=== PATIENT | male | born 1955 | race Caucasian/White ===

== ENCOUNTER 2017-06-10 08:26 | Inpatient (IN) | payer OTHER ==
[2017-06-09 14:20] VITALS: BMI 38.0
[~2017-06-10] VITALS: Ht 167.6 cm; Wt 105.2 kg
[2017-06-10] VITALS (23 sets, daily range): BP systolic 95–150; BP diastolic 52–92; PULSE 50–89; RESP 12–28; Ht 167.6 cm; Wt 105.2 kg
[~2017-06-10 08:26] MED LIST: CEFAZOLIN 2 GM/50 ML (PMX) 50 ML (FOR WT < 120 KG) IVPB ONE; TRANEXAMIC ACID 1,000 MG in NS AT CLOSURE X1 IVPB ONE; TRANEXAMIC ACID 1,000 MG in NS AT INCISION X1 IVPB ONE
[2017-06-10] MEDS ORDERED: SITA100T8 PO (09:20)
[2017-06-10] MEDS ORDERED: DAPA1TAB3 PO (09:20)
[2017-06-10] MEDS ORDERED: GABA100C14 PO (09:21)
[2017-06-10] MEDS ORDERED: MELO-216 PO (09:21)
[2017-06-10] MEDS ORDERED: PRAV40TA76 PO (09:23)
[2017-06-10] MEDS ORDERED: BENA1TAB12 PO (09:23)
--- NOTE | 2017-06-10 09:32 | HPN ---
Date/Time of Note Date/Time of Note DATE: 06/10/17 TIME: 09:32 Interval H&P Admission Note Pt. seen H&P reviewed: No system changes CHAPINCITO TUCKER PA-C Jun 10, 2017 09:32
[2017-06-10] MEDS ORDERED: BUPIVACAINE 0.5%/EPI (SDV) 30 ML INJ ONE ×2 (10:03→12:30)
[2017-06-10] MEDS ORDERED: POLYMYXIN/BACITRACIN 1L IRRIG ONE (10:04)
[2017-06-10] MEDS ORDERED: KETOROLAC 30 MG INJ ONE ×3 (10:04→15:50)
[2017-06-10] MEDS ORDERED: morphine SULFATE/PF (10 MG/10 ML) INJ ONE (10:04)
[2017-06-10] MEDS ORDERED: MIDAZOLAM 1 MG/ML 2 ML INJ ONE (10:20)
[2017-06-10] MEDS ORDERED: OXYCODONE/ACETAMINOPHEN (5/325) TAB PO PRN ×2 (10:30)
[2017-06-10] MEDS ORDERED: MIDAZOLAM 1 MG/ML 2 ML INJ IV PRN (10:30)
[2017-06-10] MEDS ORDERED: METOCLOPRAMIDE 10 MG INJ IV PRN (10:30)
[2017-06-10] MEDS ORDERED: MEPERIDINE 25 MG INJ IV PRN (10:30)
[2017-06-10] MEDS ORDERED: EPHEDrine SULFATE 50 MG/5 ML SYG IV PRN (10:30)
[2017-06-10] MEDS ORDERED: DIPHENHYDRAMINE 50 MG INJ IV PRN (10:30)
[2017-06-10] MEDS ORDERED: ONDANSETRON 4 MG INJ IV PRN (10:30)
[2017-06-10] MEDS ORDERED: hydrALAzine 20 MG INJ IV PRN (10:30)
[2017-06-10] MEDS ORDERED: HYPOGLYCEMIA PROTOCOL when Glucose is <70 mg/dL or symptomatic <90 mg/dL. XX ONE (10:30)
[2017-06-10] MEDS ORDERED: LABETALOL HCL 20MG INJ IV PRN (10:30)
[2017-06-10] MEDS ORDERED: KETOROLAC 30 MG INJ IV PRN (10:30)
[2017-06-10] MEDS ORDERED: FENTAnyl 50 MCG/ML VIAL IV PRN ×3 (10:30)
[2017-06-10] MEDS ORDERED: HYDROmorphONE (0.2 MG/ML) 10ML SYG IV PRN ×3 (10:30)
[2017-06-10] MEDS ORDERED: GLUCOSE GEL 15 GRAM TUBE PO PRN ×2 (11:00)
[2017-06-10] MEDS ORDERED: GLUCAGON 1 MG INJ IM PRN (11:00)
[2017-06-10] MEDS ORDERED: GLUCOSE GEL 15 GRAM TUBE BUCCAL PRN (11:00)
[2017-06-10] MEDS ORDERED: DEXTROSE 50% 50 ML SYRINGE IV PRN ×2 (11:00)
--- NOTE | 2017-06-10 14:34 | SIPON ---
Date/Time of Note Date/Time of Note DATE: 06/10/17 TIME: 14:32 Operative Report Preoperative Diagnosis bilateral DJD of the knees Postoperative Diagnosis same Operation/Procedure Performed Right total knee replacement, left medial unicondylar knee replacement Surgeon see signature line carpenter's assistant Dr. Lencho Matta Second assist: CHAPINCITO TUCKER PA-C Anesthesia: spinal Estimated blood loss: 200 - 250 ml's Transfusion Required none Specimen bone Grafts/Implants DePuy TKA, right 5 femur, 5 tibia, 7 poly, 35 patella CR knee DePuy Left UKA, 4 femur, 4 tibia, 8 poly Complications none HUNTER BARNES Jun 10, 2017 14:34
[2017-06-10] MEDS ORDERED: LABETALOL HCL 20MG INJ ONE (14:49)
[2017-06-10] MEDS ORDERED: NEOSTIGMINE 3 MG/3 ML SYRINGE ONE (15:21)
[2017-06-10] MEDS ORDERED: PROPOFOL 20 ML ONE (15:21)
[2017-06-10] MEDS ORDERED: LIDOCAINE 2% (SDV) 5 ML INJ ONE (15:21)
[2017-06-10] MEDS ORDERED: ROCURONIUM 50 MG INJ ONE (15:21)
[2017-06-10] MEDS ORDERED: GLYCOPYRROLATE 0.4 MG INJ ONE (15:22)
[2017-06-10] MEDS ORDERED: DEXTROSE 5%-LR 1,000 ML IV SCH (15:59)
--- NOTE | 2017-06-10 15:59 | PDOCDIS ---
Discharge Instructions DIAGNOSIS Discharge Diagnosis Status post right total knee replacement and left unicondylar medial resurfacing. CONDITION Patient Condition: Good HOME CARE INSTRUCTIONS: Diet Instructions: Regular ACTIVITY: Activity Restrictions: Slowly Increase Activity Rest between Activity Avoid heavy lifting No Sexual Activity Do not Drive Do not operate Machinery Do not operate Power Tool Avoid Heavy Housework Keep Limb Elevated (With pillows underneath the foot/ankle only so that leg remains in full extension at rest. Ice modalities.) Weight Bearing (As tolerated using front wheeled walker) Bathing Restrictions: Shower (Keep Mepilex dressing on until postoperative appointment with Dr. Perez. Keep area dry.) FOLLOW UP/APPOINTMENTS Follow-up Plan Follow-up at postoperative appointment provided to you at your preoperative examination. CHAPINCITO TUCKER PA-C Jun 10, 2017 15:59
[2017-06-10] MEDS ORDERED: DOCUSATE SODIUM 100 MG CAP PO ONE (16:00)
[2017-06-10] MEDS ORDERED: BETHANECHOL 25 MG TAB PO PRN (16:00)
[2017-06-10] MEDS ORDERED: DIPHENHYDRAMINE 50 MG INJ IM PRN (16:00)
[2017-06-10] MEDS ORDERED: oxyCODONE 5 MG TAB PO PRN ×2 (16:00)
[2017-06-10] MEDS ORDERED: BISACODYL 10 MG SUPP PR PRN (16:00)
[2017-06-10] MEDS ORDERED: COUMADIN NOTE XX SCH (16:00)
[2017-06-10] MEDS ORDERED: NA PHOSPHATE/BIPHOS 133 ML ENEMA PR PRN (16:00)
[2017-06-10] MEDS ORDERED: HYDROmorphONE 0.2 MG/ML PCA IV PRN (16:00)
[2017-06-10] MEDS ORDERED: NALOXONE (0.4 MG/ML) INJ IV PRN (16:00)
[2017-06-10] MEDS ORDERED: SOD CHLORIDE 0.9% IVPB ONE ×6 (16:00→22:00)
[2017-06-10] MEDS ORDERED: MEPERIDINE 10 MG/ML 30 ML PCA IV PRN (16:00)
[2017-06-10] MEDS ORDERED: TRANEXAMIC ACID IVPB ONE ×6 (16:00→22:00)
[2017-06-10] MEDS ORDERED: MAGNESIUM HYDROXIDE 30ML CUP PO PRN (16:00)
[2017-06-10] MEDS ORDERED: ZOLPIDEM 5 MG TAB PO PRN (16:00)
[2017-06-10] MEDS ORDERED: ASPIRIN (EC) 325 MG TAB PO ONE (16:00)
--- NOTE | 2017-06-10 16:30 | OPR ---
Date/Time of Note Date/Time of Note DATE: 06/10/17 TIME: 16:22 Operative Report Procedure Date: Jun 10, 2017 Preoperative Diagnosis Bilateral osteoarthritis of the knees Postoperative Diagnosis Same Operation/Procedure Performed Right total knee replacement and left partial knee replacement Surgeon see signature line Crushed Stone Grader Dr. Lencho Matta Second Crushed Stone Grader: CHAPINCITO TUCKER PA-C Anesthesia Type: spinal Estimated Blood Loss: 250 - 300 ml's Transfusion none Specimen Bone Grafts/Implants Left partial knee replacement, size 4 femur, size 4 tibia and 8 mm of polyethylene, Depuy knee Right total knee replacement, size 5 femur, size 5 tibia and 8 mm of polyethylene Tubes/Drains None Complications none Pt Condition Post Procedure: stable Indications Patient is a 61-year-old male with advanced osteoarthritis of both knees, right side is worse than left Procedure Description Patient was placed supine on the operating room table. All bony points were well-padded. Preoperative antibiotics were administered. Both lower extremities were prepped and draped in usual manner. The left knee was prepared for a partial knee replacement. The left knee was approached anteriorly. A sub-vastus approach was made. The medial compartment was exposed and found to be completely devoid of cartilage on the femoral side. There are osteophytes and loose bodies. Osteophytes and loose bodies were removed. The tibial preparation was first done with external alignment. The tibia was prepared for a size 4 component from the Depuy knee system. The femur was then prepared for a size 4 component with the distal cut posterior cuts and a chamfer cut. Lug holes were drilled to secure the femoral component. Trials were inserted including a 4 femur, 4 tibia and 8 mm of polyethylene. This results in a stable knee from 0-130 with good balance and tracking. Trials were then removed. The knee was injected with quarter percent Marcaine with epinephrine along with Toradol. The knee was thoroughly irrigated and dried. Final components were cemented in place including a 4 femur, 4 tibia and 8 mm of polyethylene. Excess cement was removed. The wound was closed in layers using #1 Vicryl for arthrotomy, #2-0 Vicryl for subcutaneous tissue and 3-0 Monocryl for the skin. The right knee was then exposed with an anterior incision. A medial parapatellar approach was used. The patella was displaced laterally without everting it. Medial and lateral collateral ligaments were protected. Using intramedullary alignment, the distal femoral cut was made in 5 of valgus. Osteophytes were removed. The femur was measured to be a size 5 from the [employer] knee system. The size 5 cutting block was placed on the distal femur and anterior posterior and chamfer cuts made. The PCL was preserved. Remnants of the menisci were removed. The tibia was cut using external alignment and prepared for a size 5 component and slight external rotation. The patella was cut with a patellar clamp and patellar height restored with a 35 mm patella. Trials were inserted including a 5 femur, 5 tibia, 8 mm of polyethylene and 35 patella. This resulted in a stable knee from 0-120 with good balance and tracking. The trials were then removed. Hemostasis was confirmed. The knee was thoroughly irrigated and dried. Final components were then cemented in place including a 5 femur, 5 tibia and 35 patella. A 8 mm of polyethylene were inserted to complete the knee replacement. The knee was stable throughout its range of motion. The knee was thoroughly irrigated and injected with quarter percent Marcaine with epinephrine along with Toradol. The knee was closed in layers using #1 Vicryl for arthrotomy, 2-0 Vicryl for subcutaneous tissue and 3- 0 Monocryl for the skin. Patient was transferred to the recovery room in stable condition. HUNTER BARNES Jun 10, 2017 16:30
--- NOTE | 2017-06-10 16:45 | RADRPT ---
PROCEDURE: XR Knee. CLINICAL INDICATION: Postoperative evaluation TECHNIQUE: AP supine and cross-table lateral views of the left knee were obtained. COMPARISON: None available. FINDINGS: Mineralization is within normal limits. Metallic medial compartment of prosthetic components are pr esent involving the medial femoral condyle and medial tibial plateau. Alignment of the joint spaces is normal. Postoperative gas and soft tissue swelling is seen in the anterior compartment includin g the suprapatellar bursa with mild diffuse soft tissue swelling. RPTAT:HJJR IMPRESSION: Findings of recent postoperative hemiarthroplasty medial compartment changes of the left knee, the p rosthetic components in good radiographic alignment. Physician Clarisse Date Time Electronically viewed and signed by Physician Clarisse on 06/10/2017 16:44 JR/
--- NOTE | 2017-06-10 16:46 | RADRPT ---
PROCEDURE: Right knee x-ray CLINICAL INDICATION: Postoperative evaluation TECHNIQUE: Supine AP and cross-table lateral views of the right knee were obtained. COMPARISON: None available FINDINGS: The patient is status post total knee replacement . There are postsurgical changes in the subcutane ous soft tissues. The metallic distal femoral and proximal tibial prosthetic components are in good radiographic alignment. Postoperative changes of the posterior patellar margin are noted. Gas in th e anterior soft tissues and suprapatellar bursa is present consistent with recent surgery. There is normal mineralization. No acute fracture or dislocation is seen. RPTAT:HJJR IMPRESSION: Postsurgical changes of the right knee status post knee arthroplasty, the metallic hardware componen ts in good radiographic alignment. Physician Clarisse Date Time Electronically viewed and signed by Physician Clarisse on 06/10/2017 16:46 /
[2017-06-10] MEDS: ACETAMINOPHEN 1000MG/100ML IV 100 ML IVPB SCH (16:47)
[2017-06-10] MEDS: CEFAZOLIN 1 GM/50 ML (PMX) 50 ML IVPB SCH ×2 (16:47→23:20)
[2017-06-10] MEDS: ONDANSETRON 4 MG INJ IV SCH ×2 (17:51→21:16)
--- NOTE | 2017-06-10 19:16 | CONS ---
Date/Time of Note Date/Time of Note DATE: 06/10/17 TIME: 19:09 Assessment/Plan Assessment/Plan Chief Complaint/Hosp Course 1. Bilateral arthritis in the knees status post right total knee replacement and left partial knee replacement Pain control PT 2. Hypertension Resume home meds 3. Diabetes Resume home p.o. meds Check an A1c 4. Dyslipidemia Resume home statin Problems: Consultation Date/Type/Reason Admit Date/Time Jun 10, 2017 at 08:26 Hx of Present Illness Patient is a 61-year-old male with history of non-insulin requiring diabetes, dyslipidemia, hypertension, prostate cancer status post resection and arthritis , patient is status post right total knee replacement and left partial knee replacement today. Patient's pain is currently controlled and he states that his diabetes and hypertension are well managed. Patient has no acute complaints. Constitutional: improved, no complaints Eyes: no complaints ENT: no complaints Respiratory: no complaints Cardiovascular: no complaints Gastrointestinal: no complaints Genitourinary: no complaints Musculoskeletal: no complaints Skin: no complaints Neurologic: no complaints Endocrine: no complaints Lymphatic: no complaints Psychological: nl mood/affect, no complaints Immunologic: no complaints Past Medical History Prostate cancer Medical History: diabetes, high cholesterol, hypertension Past Surgical History History of prostate resection Right total knee replacement and left partial knee replacement postop day 0 Family History Significant Family History: no pertinent family hx Social History Alcohol Use: none Smoking Status: Former smoker Drug Use: none Exam/Review of Systems Vital Signs Vitals Vital Signs Date Time Temp Pulse Resp B/P Pulse Ox O2 Delivery O2 Flow Rate FiO2 06/10/17 17:35 Nasal Cannula 2.0 06/10/17 17:06 52 14 120/70 97 06/10/17 16:05 98.5 Exam Constitutional: alert, oriented Head: normocephalic Respiratory: clear to auscultation Cardiovascular: regular rate and rhythm Gastrointestinal: soft, No distended Musculoskeletal: nl extremities to inspection Results Results 24 hrs Laboratory Tests Test 06/10/17 09:04 06/10/17 17:50 Bedside Glucose 99 129 Medications Medications Current Medications Miscellaneous Information 1 ea NOTE XX ; Start 06/10/17 at 11:00 Glucose (Glutose) 15 gm Q15M PRN PO DECREASED GLUCOSE; Start 06/10/17 at 11:00 Glucose (Glutose) 22.5 gm Q15M PRN PO DECREASED GLUCOSE; Start 06/10/17 at 11: 00 Dextrose (D50w Syringe) 25 ml Q15M PRN IV DECREASED GLUCOSE; Start 06/10/17 at 11:00 Dextrose (D50w Syringe) 50 ml Q15M PRN IV DECREASED GLUCOSE; Start 06/10/17 at 11:00 Glucagon (Glucagen) 1 mg Q15M PRN IM DECREASED GLUCOSE; Start 06/10/17 at 11:00 Glucose (Glutose) 15 gm Q15M PRN BUCCAL DECREASED GLUCOSE; Start 06/10/17 at 11 :00 Hydromorphone HCl (Dilaudid HOSPITAL INTERN) Q4PCA PRN IV SEVERE PAIN 8-10; Start at 16:00; Stop 06/11/17 at 15:59 Meperidine HCl (Demerol [facility]OSP[facility] INTERN) Q4PCA PRN IV SEVERE PAIN 8-10; Start 06/10/17 at 16:00; Stop 06/11/17 at 15:59 Oxycodone HCl (Roxicodone) 20 mg Q3H PRN PO PAIN LEVEL 8-10; Start 06/10/17 at 16:00 Oxycodone HCl (Roxicodone) 10 mg Q3H PRN PO PAIN LEVEL 4-7; Start 06/10/17 at 16:00 Oxycodone HCl 5 mg 5 mg Q3H PRN PO PAIN LEVEL 1-3; Start 06/10/17 at 16:00 Acetaminophen (Ofirmev 1000mg/ 100ml Iv) 100 ml @ 400 mls/hr Q8H IVPB Last administered on 06/10/17 16:47; Admin Dose 400 MLS/HR; Start 06/10/17 at 16:00 ; Stop 06/12/17 at 08:14 Zolpidem Tartrate (Ambien) 5 mg HS PRN PO INSOMNIA; Start 06/10/17 at 16:00 Ondansetron HCl 4 mg 4 mg Q6H IV Last administered on 06/10/17 17:51; Admin Dose 4 MG; Start 06/10/17 at 16:00; Stop 06/11/17 at 10:01 Cefazolin Sodium (Ancef 1 Gm/50 ml (Pmx)) 50 ml @ 100 mls/hr Q8H IVPB Last administered on 06/10/17 16:47; Admin Dose 100 MLS/HR; Start 06/10/17 at 16:00 ; Stop 06/11/17 at 08:29 Miscellaneous Information (Note) NOTE XX ; Start 06/10/17 at 16:00 Aspirin (Ecotrin) 325 mg BID PO ; Start 06/11/17 at 09:00 Celecoxib (Celebrex) 200 mg BID PO ; Start 06/11/17 at 09:00 Dexamethasone (Decadron) 4 mg DAILY@07 IV ; Start 06/11/17 at 07:00; Stop 06/14 at 06:59 Pantoprazole (Protonix Tab) 40 mg DAILY@06 PO ; Start 06/12/17 at 06:00 Docusate Sodium/ Ferrous Fumarate (Marlo-Sequels) 1 tab BID PO ; Start 06/11/17 at 09:00 Docusate Sodium (Colace) 200 mg BID PO ; Start 06/11/17 at 09:00; Stop at 08:59 Simethicone (Mylicon) 80 mg TID PRN PO DISTENSION/GAS/BLOATING; Start 06/10/17 at 16:00 Senna/Docusate Sodium (Senokot-S) 2 tab BID PRN PO CONSTIPATION; Start at 16:00 Magnesium Hydroxide (Milk Of Mag) 30 ml HS PRN PO CONSTIPATION; Start 06/10/17 at 16:00 Bisacodyl (Dulcolax Supp) 10 mg DAILY PRN [place] CONSTIPATION; Start 06/10/17 at 16 :00 Sodium Biphosphate/ Sodium Phosphate (Fleet Enema) 133 ml DAILY PRN [place] CONSTIPATION; Start 06/10/17 at 16:00 Diphenhydramine HCl (Benadryl) 25 mg Q4H PRN IM ITCHING OR RASH; Start at 16:00 Ketorolac Tromethamine (Toradol) 15 mg DAILY@06 PRN IV PAIN; Start 06/11/17 at 06:00; Stop 06/15/17 at 05:59 Bupivacaine HCl/ Epinephrine Bitart (Marcaine 0.25%/ Epi (Sdv) 30 ml) 20 ml DAILY@06 PRN INJ ADMINSTER BY SURGEON ONLY; Start 06/11/17 at 06:00; Stop 07/20 at 05:59 Naloxone HCl (Narcan) 0.2 mg Q2M PRN IV DECREASED REPIRATORY RATE; Start at 16:00 Gabapentin 100 mg 100 mg BID PO ; Start 06/10/17 at 21:00; Stop 06/13/17 at 20: 59 Lactated Ringer's (Lr) 1,000 ml @ 80 mls/hr [id number] IV ; Start 06/10/17 at 20: 00 RACHEL DURON Jun 10, 2017 19:16
[2017-06-10] MEDS ORDERED: GABAPENTIN 100 MG CAP PO SCH (21:00)
[2017-06-10] MEDS: INSULIN ASPART [NOVOLOG] 3 ML PEN SC SCH (21:00)
[2017-06-10] MEDS: GABAPENTIN 100 MG CAP PO SCH (21:15)
[2017-06-10] MEDS: ATORVASTATIN 10 MG TAB PO SCH (21:15)
[2017-06-10] MEDS: LACTATED RINGER'S 1,000 ML IV SCH (21:17)
[2017-06-10] MEDS: oxyCODONE 5 MG TAB PO PRN (21:22)
[2017-06-11] VITALS: BP 90/51; RESP 51
[2017-06-11 00:10] VITALS: BP 114/60; RESP 20
[2017-06-11] MEDS: ACCU-CHEK XX SCH (02:00)
[2017-06-11] MEDS ORDERED: ACCU-CHEK XX SCH (02:00)
[2017-06-11] MEDS: ONDANSETRON 4 MG INJ IV SCH ×2 (04:36→10:00)
[2017-06-11] MEDS ORDERED: BUPIVACAINE 0.25%/EPI (SDV) 30 ML INJ INJ PRN (06:00)
[2017-06-11] MEDS ORDERED: KETOROLAC 15 MG INJ IV PRN (06:00)
[2017-06-11] MEDS: DEXAMETHASONE 4 MG/ML 1 ML INJ IV SCH (06:17)
[2017-06-11 07:00] VITALS: BP 118/63; RESP 20
[2017-06-11 08:40] LABS: BASOPHILS % 0.1 % (0.0-2.0); EOSINOPHILS % 0.2 % (0.0-7.0); HEMATOCRIT 37.3 % (42.0-52.0); HEMOGLOBIN 11.8 g/dl (14.0-18.0); LYMPHOCYTES # 0.7 10^3/ul (0.8-2.9); LYMPHOCYTES % 7.6 % (15.0-51.0); MEAN CORPUSCULAR HEMOGLOBIN 29.4 pg (29.0-33.0); MEAN CORPUSCULAR HGB CONC 31.6 g/dl (32.0-37.0); MEAN CORPUSCULAR VOLUME 92.8 fl (82.0-101.0); MEAN PLATELET VOLUME 10.2 fl (7.4-10.4); MONOCYTE # 0.6 10^3/ul (0.3-0.9); MONOCYTES % 7.1 % (0.0-11.0); NEUTROPHIL # 7.3 10^3/ul (1.6-7.5); NEUTROPHILS % 84.5 % (39.0-77.0); PLATELET COUNT 152 10^3/UL (140-415); RED BLOOD COUNT 4.02 10^6/ul (4.70-6.10); WHITE BLOOD COUNT 8.6 10^3/ul (4.8-10.8)
[2017-06-11] MEDS: INSULIN ASPART [NOVOLOG] 3 ML PEN SC SCH ×4 (08:40→21:00)
[2017-06-11 09:03] LABS: CALCIUM 8.4 mg/dl (8.4-10.2); CREATININE 0.78 mg/dl (0.61-1.24); MAGNESIUM 1.9 mg/dl (1.7-2.5); POTASSIUM 4.1 mmol/L (3.5-5.1)
[2017-06-11] MEDS: CEFAZOLIN 1 GM/50 ML (PMX) 50 ML IVPB SCH (09:37)
[2017-06-11] MEDS: ACETAMINOPHEN 1000MG/100ML IV 100 ML IVPB SCH ×3 (09:37→15:54)
[2017-06-11] MEDS: CELECOXIB 200 MG CAP PO SCH ×2 (09:38→20:46)
[2017-06-11] MEDS: LINAGLIPTIN 5 MG TABLET PO SCH (09:38)
[2017-06-11] MEDS: ASPIRIN (EC) 325 MG TAB PO SCH ×2 (09:38→20:46)
[2017-06-11] MEDS: LACTATED RINGER'S 1,000 ML IV SCH (09:38)
[2017-06-11] MEDS: GABAPENTIN 100 MG CAP PO SCH ×3 (09:38→20:46)
[2017-06-11] MEDS: DOCUSATE SODIUM 100 MG CAP PO SCH ×2 (09:39→20:47)
[2017-06-11] MEDS: FERROUS FUMARATE (SR) TAB PO SCH ×2 (09:39→20:46)
[2017-06-11] MEDS: oxyCODONE 5 MG TAB PO PRN ×3 (10:35→20:58)
--- NOTE | 2017-06-11 11:21 | PN ---
Date/Time of Note Date/Time of Note DATE: 06/11/17 TIME: 11:18 Assessment/Plan VTE Prophylaxis VTE Prophylaxis Intervention: ambulation, SCD's, other (Aspirin 325 mg) Lines/Catheters IV Catheter Type (from Nrsg): Peripheral IV Huertas in Place (from Nrsg): No Assessment/Plan Assessment/Plan -Pain Meds as needed -Dressing is clean and intact. -OOB with PT. patient was advised to keep legs at full extension while at rest. Patient adjusted his hospital bed which left his legs in flexion and he is having stiffness especially with extension today. Discussed with nurse to apply 3-4 pillows directly under the foot bilaterally that leg remains in full extension at rest. -ASA/SCDs for DVT Prophylaxis -Continue monitoring with Internal Medicine -Patient Stable. Plan is to discharge home tomorrow depending on progress with physical therapy. Subjective 24 Hr Interval Summary 61-year-old male postop day 1 status post right total knee arthroplasty and left unit condylar resurfacing to the medial compartment. Patient denies any acute events overnight. Pain is well controlled. Patient has yet to initiate physical therapy. Denies any chest pain/tightness, shortness of breath or calf pain. Constitutional: no complaints Pain Control: well controlled Exam/Review of Systems Vital Signs Vitals Vital Signs Date Time Temp Pulse Resp B/P Pulse Ox O2 Delivery O2 Flow Rate FiO2 06/11/17 07:40 Nasal Cannula 2.0 06/11/17 07:00 97.9 71 20 118/63 95 Intake and Output 06/10/17 06/10/17 06/11/17 15:00 23:00 07:00 Intake Total 2491.0 ml 1210 ml Output Total 600 ml 1200 ml Balance 1891.0 ml 10 ml Exam Free Text/Dictation -No complications with dressing intact. -5/5 Tibialis Anterior, EHL Gastrocnemius/Soleus and Peroneals bilaterally. -About 10 lag from full extension bilaterally. Patient is able to flex the right knee up to 60 and flexion of the left knee up to 80 actively. -Normal Sensation -Palpable DP/PT, Capillary Refill <2 secs -No Distal Edema -Negative Angela Sign/No calf pain -Toes Freely Movable Constitutional: alert, oriented, well developed Results Result Diagram: 06/11/1781506/11/17815 CHAPINCITO TUCKER PA-C Jun 11, 2017 11:21
[2017-06-11 14:00] VITALS: BP 110/72; RESP 18
[2017-06-11 14:02] LABS: ADD UMIC YES; UR ASCORBIC ACID NEGATIVE (NEGATIVE); UR BILIRUBIN (Dip) NEGATIVE (NEGATIVE); UR BLOOD (Dip) 2+ mg/dL (NEGATIVE); UR CLARITY CLEAR (CLEAR); UR COLOR STRAW (YELLOW); UR GLUCOSE (Dip) 3+ mg/dL (NEGATIVE); UR KETONES (Dip) NEGATIVE (NEGATIVE); UR LEUKOCYTE ESTERASE (Dip) NEGATIVE Leu/ul (NEGATIVE); UR NITRITE (Dip) NEGATIVE (NEGATIVE); UR RBC 2 /HPF (0-5); UR SPECIFIC GRAVITY (Dip) 1.014 (1.003-1.030); UR TOTAL PROTEIN (Dip) NEGATIVE (NEGATIVE); UR UROBILINOGEN (Dip) NEGATIVE (NEGATIVE)
--- NOTE | 2017-06-11 17:06 | PN ---
Date/Time of Note Date/Time of Note DATE: 06/11/17 TIME: 17:05 Assessment/Plan VTE Prophylaxis VTE Prophylaxis Intervention: other Lines/Catheters IV Catheter Type (from Nrs): Peripheral IV Urinary Cath still in place: No Assessment/Plan Chief Complaint/Hosp Course 1. Bilateral arthritis in the knees status post right total knee replacement and left partial knee replacement Pain control PT 2. Hypertension Hold home meds secondary to hypotension 3. Diabetes Continue home p.o. meds A1c at 6.2 4. Dyslipidemia Resume home statin Problems: Subjective 24 Hr Interval Summary Musculoskeletal: bone/joint pain Exam/Review of Systems Vital Signs Vitals Vital Signs Date Time Temp Pulse Resp B/P Pulse Ox O2 Delivery O2 Flow Rate FiO2 06/11/17 14:00 98.1 70 18 110/72 98 06/11/17 07:40 Nasal Cannula 2.0 Intake and Output 06/10/17 06/10/17 06/11/17 15:00 23:00 07:00 Intake Total 2491.0 ml 1210 ml Output Total 600 ml 1200 ml Balance 1891.0 ml 10 ml Exam Constitutional: alert, oriented Respiratory: clear to auscultation Cardiovascular: regular rate and rhythm Gastrointestinal: soft, No distended Musculoskeletal: nl extremities to inspection Results Result Diagram: 06/11/17 0816 06/11/17 0816 Results 24 hrs Laboratory Tests Test 06/10/17 17:50 06/10/17 21:13 06/11/17 08:16 06/11/17 08:50 Bedside Glucose 129 152 125 White Blood Count 8.6 Red Blood Count 4.02 L Hemoglobin 11.8 L Hematocrit 37.3 L Mean Corpuscular Volume 92.8 Mean Corpuscular Hemoglobin 29.4 Mean Corpuscular Hemoglobin Concent 31.6 L Red Cell Distribution Width 13.0 Platelet Count 152 Mean Platelet Volume 10.2 Neutrophils % 84.5 H Lymphocytes % 7.6 L Monocytes % 7.1 Eosinophils % 0.2 Basophils % 0.1 Nucleated Red Blood Cells % 0.0 Neutrophils # 7.3 Lymphocytes # 0.7 L Monocytes # 0.6 Eosinophils # 0.0 Basophils # 0.0 Nucleated Red Blood Cells # 0.0 Sodium Level 141 Potassium Level 4.1 Chloride Level 105 Carbon Dioxide Level 30 Anion Gap 10 Blood Urea Nitrogen 17 Creatinine 0.78 Glucose Level 127 Hemoglobin A1c 6.2 H Calcium Level 8.4 Magnesium Level 1.9 Test 06/11/17 11:55 06/11/17 13:00 Urine Color STRAW Urine Clarity CLEAR Urine pH 6.0 Urine Specific [place] 1.014 Urine Ketones NEGATIVE Urine Nitrite NEGATIVE Urine Bilirubin NEGATIVE Urine Urobilinogen NEGATIVE Urine Leukocyte Esterase NEGATIVE Urine Microscopic RBC 2 Urine Microscopic WBC 3 Urine Hemoglobin 2+ H Urine Glucose 3+ H Urine Total Protein NEGATIVE Bedside Glucose 143 Medications Medications Current Medications Miscellaneous Information 1 ea NOTE XX ; Start 06/10/17 at 11:00 Glucose (Glutose) 15 gm Q15M PRN PO DECREASED GLUCOSE; Start 06/10/17 at 11:00 Glucose (Glutose) 22.5 gm Q15M PRN PO DECREASED GLUCOSE; Start 06/10/17 at 11: 00 Dextrose (D50w Syringe) 25 ml Q15M PRN IV DECREASED GLUCOSE; Start 06/10/17 at 11:00 Dextrose (D50w Syringe) 50 ml Q15M PRN IV DECREASED GLUCOSE; Start 06/10/17 at 11:00 Glucagon (Glucagen) 1 mg Q15M PRN IM DECREASED GLUCOSE; Start 06/10/17 at 11:00 Glucose (Glutose) 15 gm Q15M PRN BUCCAL DECREASED GLUCOSE; Start 06/10/17 at 11 :00 Oxycodone HCl (Roxicodone) 20 mg Q3H PRN PO PAIN LEVEL 8-10; Start 06/10/17 at 16:00 Oxycodone HCl (Roxicodone) 10 mg Q3H PRN PO PAIN LEVEL 4-7 Last administered on 06/11/17 11:49; Admin Dose 10 MG; Start 06/10/17 at 16:00 Oxycodone HCl 5 mg 5 mg Q3H PRN PO PAIN LEVEL 1-3; Start 06/10/17 at 16:00 Acetaminophen (Ofirmev 1000mg/ 100ml Iv) 100 ml @ 400 mls/hr Q8H IVPB Last administered on 06/11/17 15:54; Admin Dose 400 MLS/HR; Start 06/10/17 at 16:00 ; Stop 06/12/17 at 08:14 Zolpidem Tartrate (Ambien) 5 mg HS PRN PO INSOMNIA; Start 06/10/17 at 16:00 Miscellaneous Information (Note) NOTE XX ; Start 06/10/17 at 16:00 Aspirin (Ecotrin) 325 mg BID PO Last administered on 06/11/17 09:38; Admin Dose 325 MG; Start 06/11/17 at 09:00 Celecoxib (Celebrex) 200 mg BID PO Last administered on 06/11/17 09:38; Admin Dose 200 MG; Start 06/11/17 at 09:00 Dexamethasone (Decadron) 4 mg DAILY@07 IV Last administered on 06/11/17 06:17 ; Admin Dose 4 MG; Start 06/11/17 at 07:00; Stop 06/14/17 at 06:59 Pantoprazole (Protonix Tab) 40 mg DAILY@06 PO ; Start 06/12/17 at 06:00 Docusate Sodium/ Ferrous Fumarate (Marlo-Sequels) 1 tab BID PO Last administered on 06/11/17 09:39; Admin Dose 1 TAB; Start 06/11/17 at 09:00 Docusate Sodium (Colace) 200 mg BID PO Last administered on 06/11/17 09:39; Admin Dose 200 MG; Start 06/11/17 at 09:00; Stop 06/14/17 at 08:59 Simethicone (Mylicon) 80 mg TID PRN PO DISTENSION/GAS/BLOATING; Start 06/10/17 at 16:00 Senna/Docusate Sodium (Senokot-S) 2 tab BID PRN PO CONSTIPATION; Start at 16:00 Magnesium Hydroxide (Milk Of Mag) 30 ml HS PRN PO CONSTIPATION; Start 06/10/17 at 16:00 Bisacodyl (Dulcolax Supp) 10 mg DAILY PRN [place] CONSTIPATION; Start 06/10/17 at 16 :00 Sodium Biphosphate/ Sodium Phosphate (Fleet Enema) 133 ml DAILY PRN [place] CONSTIPATION; Start 06/10/17 at 16:00 Diphenhydramine HCl (Benadryl) 25 mg Q4H PRN IM ITCHING OR RASH; Start at 16:00 Ketorolac Tromethamine (Toradol) 15 mg DAILY@06 PRN IV PAIN; Start 06/11/17 at 06:00; Stop 06/15/17 at 05:59 Bupivacaine HCl/ Epinephrine Bitart (Marcaine 0.25%/ Epi (Sdv) 30 ml) 20 ml DAILY@06 PRN INJ ADMINSTER BY SURGEON ONLY; Start 06/11/17 at 06:00; Stop 07/20 at 05:59 Naloxone HCl (Narcan) 0.2 mg Q2M PRN IV DECREASED REPIRATORY RATE; Start at 16:00 Gabapentin (Neurontin) 100 mg TID PO Last administered on 06/11/17 13:04; Admin Dose 100 MG; Start 06/10/17 at 21:00 Atorvastatin Calcium (Lipitor) 10 mg DAILY@21 PO Last administered on 21:15; Admin Dose 10 MG; Start 06/10/17 at 21:00 Linagliptin (Tradjenta) 5 mg DAILY PO Last administered on 06/11/17 09:38; Admin Dose 5 MG; Start 06/11/17 at 09:00 Diagnostic Test (Pha) (Accu-Chek) 1 ea 02 XX ; Start 06/11/17 at 02:00 RAHCEL DURON Jun 11, 2017 17:06
[2017-06-11 20:02] VITALS: BP 128/75; RESP 20
[2017-06-11] MEDS: ATORVASTATIN 10 MG TAB PO SCH (20:46)
[2017-06-12] MEDS: ACETAMINOPHEN 1000MG/100ML IV 100 ML IVPB SCH ×2 (00:42→08:00)
[2017-06-12] MEDS: ACCU-CHEK XX SCH (02:00)
[2017-06-12 02:55] VITALS: BP 100/63; RESP 18
[2017-06-12 05:10] LABS: BASOPHILS % 0.1 % (0.0-2.0); EOSINOPHILS # 0.1 10^3/ul (0.0-0.5); EOSINOPHILS % 0.8 % (0.0-7.0); HEMATOCRIT 33.2 % (42.0-52.0); HEMOGLOBIN 10.7 g/dl (14.0-18.0); LYMPHOCYTES # 1.4 10^3/ul (0.8-2.9); LYMPHOCYTES % 15.9 % (15.0-51.0); MEAN CORPUSCULAR HEMOGLOBIN 29.6 pg (29.0-33.0); MEAN CORPUSCULAR HGB CONC 32.2 g/dl (32.0-37.0); MEAN CORPUSCULAR VOLUME 91.7 fl (82.0-101.0); MEAN PLATELET VOLUME 10.3 fl (7.4-10.4); MONOCYTE # 0.9 10^3/ul (0.3-0.9); MONOCYTES % 10.4 % (0.0-11.0); NEUTROPHIL # 6.2 10^3/ul (1.6-7.5); NEUTROPHILS % 72.4 % (39.0-77.0); PLATELET COUNT 150 10^3/UL (140-415); RED BLOOD COUNT 3.62 10^6/ul (4.70-6.10); RED CELL DISTRIBUTION WIDTH 12.7 % (11.5-14.5); WHITE BLOOD COUNT 8.6 10^3/ul (4.8-10.8)
[2017-06-12] MEDS: DEXAMETHASONE 4 MG/ML 1 ML INJ IV SCH (06:10)
[2017-06-12] MEDS: PANTOPRAZOLE (EC) 40 MG TAB PO SCH (06:10)
[2017-06-12 08:00] VITALS: BP 142/85; RESP 18
--- NOTE | 2017-06-12 08:12 | PN ---
Date/Time of Note Date/Time of Note DATE: 06/12/17 TIME: 08:09 Assessment/Plan VTE Prophylaxis VTE Prophylaxis Intervention: ambulation, SCD's, other (Aspirin 325 mg) Lines/Catheters IV Catheter Type (from Nrsg): Peripheral IV Huertas in Place (from Nrsg): No Assessment/Plan Assessment/Plan -Pain Meds as needed -ASA for DVT Prophylaxis x 4 weeks outpatient discussed. -Continue monitoring as outpatient on discharge -Follow-up at scheduled postop outpatient appointment or sooner if there is any issue. -Patient Stable -Discharge to Home with home health -Lengthy discussion had with patient today in regards to keeping legs in full extension or as much extension as possible while resting. Patient was strongly advised when he returns home, to place pillows under the feet. Discussed range of motion in regards to active flexion and extension every 2-3 hours while at home. Continue with physical therapy as well. Patient will follow-up in office in 10-14 days. Subjective 24 Hr Interval Summary 61-year-old male postop day 2 status post right total knee arthroplasty and left medial unicondylar resurfacing. Patient states that he is doing much better today in regards to functionality to the bilateral knee. Initiated physical therapy yesterday and was walking up and down the hallways. Patient does have aches especially with weightbearing and range of motion. Denies any calf pain, chest pain/tightness or shortness of breath. No acute events overnight. Plan is to discharge home today. Pain Control: well controlled Exam/Review of Systems Vital Signs Vitals Vital Signs Date Time Temp Pulse Resp B/P Pulse Ox O2 Delivery O2 Flow Rate FiO2 06/12/17 02:55 98.0 77 18 100/63 96 06/11/17 07:40 Nasal Cannula 2.0 Intake and Output 06/11/17 06/11/17 06/12/17 15:00 23:00 07:00 Intake Total 560 ml 900 ml 550 ml Output Total 650 ml 700 ml Balance 560 ml 250 ml -150 ml Exam Free Text/Dictation -No complications with dressing intact to the bilateral knee. -5/5 Tibialis Anterior, EHL Gastrocnemius/Soleus and Peroneals bilaterally -Stiffness to the bilateral knee with knees having about 10-15 extension lag. -Normal Sensation -Palpable DP/PT, Capillary Refill <2 secs -No Distal Edema -Negative Angela Sign/No calf pain -Toes Freely Movable Constitutional: alert, oriented, well developed Results Result Diagram: 06/12/17 0442 06/11/17 0816 CHAPINCITO TUCKER PA-C Jun 12, 2017 08:12
[2017-06-12] MEDS: LINAGLIPTIN 5 MG TABLET PO SCH (09:31)
[2017-06-12] MEDS: CELECOXIB 200 MG CAP PO SCH ×2 (09:31→21:45)
[2017-06-12] MEDS: ASPIRIN (EC) 325 MG TAB PO SCH ×2 (09:31→21:45)
[2017-06-12] MEDS: GABAPENTIN 100 MG CAP PO SCH ×3 (09:31→21:46)
[2017-06-12] MEDS: FERROUS FUMARATE (SR) TAB PO SCH ×2 (09:32→21:50)
[2017-06-12] MEDS: DOCUSATE SODIUM 100 MG CAP PO SCH ×2 (09:33→21:45)
[2017-06-12] MEDS: oxyCODONE 5 MG TAB PO PRN ×3 (09:34→19:13)
[2017-06-12] MEDS: INSULIN ASPART [NOVOLOG] 3 ML PEN SC SCH ×4 (09:37→21:00)
[2017-06-12 14:00] VITALS: BP 122/76; RESP 18
--- NOTE | 2017-06-12 16:07 | PN ---
Date/Time of Note Date/Time of Note DATE: 06/12/17 TIME: 15:54 Assessment/Plan VTE Prophylaxis VTE Prophylaxis Intervention: other Lines/Catheters IV Catheter Type (from Nrs): Peripheral IV Urinary Cath still in place: No Assessment/Plan Chief Complaint/Hosp Course 1. 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 Hypertension Hold home meds secondary to hypotension 3. Diabetes Continue home p.o. meds A1c at 6.2 4. Dyslipidemia Resume home statin Problems: Subjective 24 Hr Interval Summary Musculoskeletal: bone/joint pain Exam/Review of Systems Vital Signs Vitals Vital Signs Date Time Temp Pulse Resp B/P Pulse Ox O2 Delivery O2 Flow Rate FiO2 06/12/17 08:00 98.6 75 18 142/85 95 06/11/17 07:40 Nasal Cannula 2.0 Intake and Output 06/11/17 06/11/17 06/12/17 15:00 23:00 07:00 Intake Total 560 ml 900 ml 550 ml Output Total 650 ml 700 ml Balance 560 ml 250 ml -150 ml Exam Constitutional: alert, oriented Respiratory: clear to auscultation Cardiovascular: regular rate and rhythm Gastrointestinal: soft, No distended Musculoskeletal: nl extremities to inspection Results Result Diagram: 06/12/17 0442 06/11/17 0816 Results 24 hrs Laboratory Tests Test 06/11/17 17:37 06/11/17 20:45 06/12/17 04:42 06/12/17 08:33 Bedside Glucose 149 152 212 White Blood Count 8.6 Red Blood Count 3.62 L Hemoglobin 10.7 L Hematocrit 33.2 L Mean Corpuscular Volume 91.7 Mean Corpuscular Hemoglobin 29.6 Mean Corpuscular Hemoglobin Concent 32.2 Red Cell Distribution Width 12.7 Platelet Count 150 Mean Platelet Volume 10.3 Neutrophils % 72.4 Lymphocytes % 15.9 Monocytes % 10.4 Eosinophils % 0.8 Basophils % 0.1 Nucleated Red Blood Cells % 0.0 Neutrophils # 6.2 Lymphocytes # 1.4 Monocytes # 0.9 Eosinophils # 0.1 Basophils # 0.0 Nucleated Red Blood Cells # 0.0 Test 06/12/17 08:51 06/12/17 12:45 Bedside Glucose 190 160 Medications Medications Current Medications Miscellaneous Information 1 ea NOTE XX ; Start 06/10/17 at 11:00 Glucose (Glutose) 15 gm Q15M PRN PO DECREASED GLUCOSE; Start 06/10/17 at 11:00 Glucose (Glutose) 22.5 gm Q15M PRN PO DECREASED GLUCOSE; Start 06/10/17 at 11: 00 Dextrose (D50w Syringe) 25 ml Q15M PRN IV DECREASED GLUCOSE; Start 06/10/17 at 11:00 Dextrose (D50w Syringe) 50 ml Q15M PRN IV DECREASED GLUCOSE; Start 06/10/17 at 11:00 Glucagon (Glucagen) 1 mg Q15M PRN IM DECREASED GLUCOSE; Start 06/10/17 at 11:00 Glucose (Glutose) 15 gm Q15M PRN BUCCAL DECREASED GLUCOSE; Start 06/10/17 at 11 :00 Oxycodone HCl (Roxicodone) 20 mg Q3H PRN PO PAIN LEVEL 8-10; Start 06/10/17 at 16:00 Oxycodone HCl (Roxicodone) 10 mg Q3H PRN PO PAIN LEVEL 4-7 Last administered on 06/12/17 13:16; Admin Dose 10 MG; Start 06/10/17 at 16:00 Oxycodone HCl (Roxicodone) 5 mg Q3H PRN PO PAIN LEVEL 1-3; Start 06/10/17 at 16 :00 Zolpidem Tartrate (Ambien) 5 mg HS PRN PO INSOMNIA; Start 06/10/17 at 16:00 Miscellaneous Information (Note) NOTE XX ; Start 06/10/17 at 16:00 Aspirin (Ecotrin) 325 mg BID PO Last administered on 06/12/17 09:31; Admin Dose 325 MG; Start 06/11/17 at 09:00 Celecoxib (Celebrex) 200 mg BID PO Last administered on 06/12/17 09:31; Admin Dose 200 MG; Start 06/11/17 at 09:00 Dexamethasone (Decadron) 4 mg DAILY@07 IV Last administered on 06/12/17 06:10 ; Admin Dose 4 MG; Start 06/11/17 at 07:00; Stop 06/14/17 at 06:59 Pantoprazole (Protonix Tab) 40 mg DAILY@06 PO Last administered on 06/12/17 06 :10; Admin Dose 40 MG; Start 06/12/17 at 06:00 Docusate Sodium/ Ferrous Fumarate (Marlo-Sequels) 1 tab BID PO Last administered on 06/12/17 09:32; Admin Dose 1 TAB; Start 06/11/17 at 09:00 Docusate Sodium (Colace) 200 mg BID PO Last administered on 06/12/17 09:33; Admin Dose 200 MG; Start 06/11/17 at 09:00; Stop 06/14/17 at 08:59 Simethicone (Mylicon) 80 mg TID PRN PO DISTENSION/GAS/BLOATING; Start 06/10/17 at 16:00 Senna/Docusate Sodium (Senokot-S) 2 tab BID PRN PO CONSTIPATION; Start at 16:00 Magnesium Hydroxide (Milk Of Mag) 30 ml HS PRN PO CONSTIPATION; Start 06/10/17 at 16:00 Bisacodyl (Dulcolax Supp) 10 mg DAILY PRN [place] CONSTIPATION; Start 06/10/17 at 16 :00 Sodium Biphosphate/ Sodium Phosphate (Fleet Enema) 133 ml DAILY PRN [place] CONSTIPATION; Start 06/10/17 at 16:00 Diphenhydramine HCl (Benadryl) 25 mg Q4H PRN IM ITCHING OR RASH; Start at 16:00 Ketorolac Tromethamine (Toradol) 15 mg DAILY@06 PRN IV PAIN; Start 06/11/17 at 06:00; Stop 06/15/17 at 05:59 Bupivacaine HCl/ Epinephrine Bitart (Marcaine 0.25%/ Epi (Sdv) 30 ml) 20 ml DAILY@06 PRN INJ ADMINSTER BY SURGEON ONLY; Start 06/11/17 at 06:00; Stop 07/20 at 05:59 Naloxone HCl (Narcan) 0.2 mg Q2M PRN IV DECREASED REPIRATORY RATE; Start at 16:00 Gabapentin (Neurontin) 100 mg TID PO Last administered on 06/12/17 13:15; Admin Dose 100 MG; Start 06/10/17 at 21:00 Atorvastatin Calcium (Lipitor) 10 mg DAILY@21 PO Last administered on 20:46; Admin Dose 10 MG; Start 06/10/17 at 21:00 Linagliptin (Tradjenta) 5 mg DAILY PO Last administered on 06/12/17t 09:31; Admin Dose 5 MG; Start 06/11/17 at 09:00 Diagnostic Test (Pha) (Accu-Chek) 1 XX ; Start 06/11/17 at 02:00 RACHEL DURON Jun 12, 2017 16:07
[2017-06-12] MEDS: SENNA/DOCUSATE NA (8.6MG/50MG) TAB PO PRN (19:14)
[2017-06-12 20:38] VITALS: BP 148/80; RESP 20
[2017-06-12] MEDS: ATORVASTATIN 10 MG TAB PO SCH (21:45)
[2017-06-13] MEDS: ACCU-CHEK XX SCH (01:46)
[2017-06-13 02:36] VITALS: BP 128/75; RESP 18
[2017-06-13 05:50] LABS: BASOPHILS % 0.1 % (0.0-2.0); EOSINOPHILS # 0.1 10^3/ul (0.0-0.5); EOSINOPHILS % 1.1 % (0.0-7.0); HEMATOCRIT 34.2 % (42.0-52.0); HEMOGLOBIN 11.1 g/dl (14.0-18.0); LYMPHOCYTES # 1.8 10^3/ul (0.8-2.9); LYMPHOCYTES % 18.9 % (15.0-51.0); MEAN CORPUSCULAR HEMOGLOBIN 29.5 pg (29.0-33.0); MEAN CORPUSCULAR HGB CONC 32.5 g/dl (32.0-37.0); MEAN PLATELET VOLUME 10.5 fl (7.4-10.4); MONOCYTE # 0.8 10^3/ul (0.3-0.9); MONOCYTES % 8.8 % (0.0-11.0); NEUTROPHIL # 6.8 10^3/ul (1.6-7.5); NEUTROPHILS % 70.8 % (39.0-77.0); PLATELET COUNT 169 10^3/UL (140-415); RED BLOOD COUNT 3.76 10^6/ul (4.70-6.10); RED CELL DISTRIBUTION WIDTH 12.6 % (11.5-14.5); WHITE BLOOD COUNT 9.6 10^3/ul (4.8-10.8)
[2017-06-13] MEDS: SENNA/DOCUSATE NA (8.6MG/50MG) TAB PO PRN (06:03)
[2017-06-13] MEDS: PANTOPRAZOLE (EC) 40 MG TAB PO SCH (06:03)
[2017-06-13] MEDS: DEXAMETHASONE 4 MG/ML 1 ML INJ IV SCH (06:03)
[2017-06-13] MEDS: oxyCODONE 5 MG TAB PO PRN ×2 (07:35→15:30)
[2017-06-13 08:32] VITALS: BP 152/87; RESP 18
[2017-06-13] MEDS: CELECOXIB 200 MG CAP PO SCH (08:57)
[2017-06-13] MEDS: DOCUSATE SODIUM 100 MG CAP PO SCH (08:57)
[2017-06-13] MEDS: GABAPENTIN 100 MG CAP PO SCH ×2 (08:57→13:09)
[2017-06-13] MEDS: LINAGLIPTIN 5 MG TABLET PO SCH (08:57)
[2017-06-13] MEDS: FERROUS FUMARATE (SR) TAB PO SCH (08:58)
[2017-06-13] MEDS: ASPIRIN (EC) 325 MG TAB PO SCH (08:58)
[2017-06-13] MEDS: INSULIN ASPART [NOVOLOG] 3 ML PEN SC SCH ×3 (09:04→17:55)
--- NOTE | 2017-06-13 09:20 | PN ---
Date/Time of Note Date/Time of Note DATE: 06/13/17 TIME: 09:18 Assessment/Plan VTE Prophylaxis VTE Prophylaxis Intervention: ambulation, SCD's, other (Aspirin 325 mg) Lines/Catheters IV Catheter Type (from Nrsg): Peripheral IV Huertas in Place (from Nrsg): No Assessment/Plan Assessment/Plan -Pain Meds as needed -ASA for DVT Prophylaxis x 6 weeks outpatient discussed. -Continue monitoring as outpatient on discharge -Follow-up at scheduled postop outpatient appointment or sooner if there is any issue. -Patient Stable -Discharge to SNF vs ARU Subjective 24 Hr Interval Summary 61-year-old male postop day 3 status post right total knee arthroplasty and left partial knee arthroplasty to the medial compartment. No acute overnight events. Patient continues with physical therapy as he is up and weightbearing with use of front wheeled walker. Patient is resting comfortably with legs under pillows and near full extension. No acute overnight events. Plan is to discharge today to retirement facility versus acute rehab unit. Constitutional: no complaints Pain Control: well controlled Exam/Review of Systems Vital Signs Vitals Vital Signs Date Time Temp Pulse Resp B/P Pulse Ox O2 Delivery O2 Flow Rate FiO2 06/13/17 08:32 98.0 72 18 152/87 95 06/11/17 07:40 Nasal Cannula 2.0 Intake and Output 06/12/17 06/12/17 06/13/17 15:00 23:00 07:00 Intake Total 700 ml 300 ml Output Total 550 ml Balance 700 ml -250 ml Exam Free Text/Dictation -No complications with dressing intact. -5/5 Tibialis Anterior, EHL Gastrocnemius/Soleus and Peroneals -Normal Sensation -Palpable DP/PT, Capillary Refill <2 secs -No Distal Edema -Negative Angela Sign/No calf pain -Toes Freely Movable Constitutional: alert, oriented, well developed Results Result Diagram: 06/13/17 0450 06/11/17 0816 CHAPINCITO TUCKER PA-C Jun 13, 2017 09:20
[2017-06-13 13:48] VITALS: BP 154/91; RESP 18
--- NOTE | 2017-06-13 18:34 | PN ---
Date/Time of Note Date/Time of Note DATE: 06/13/17 TIME: 18:33 Assessment/Plan VTE Prophylaxis VTE Prophylaxis Intervention: other Lines/Catheters IV Catheter Type (from Nrs): Saline Lock Urinary Cath still in place: No Assessment/Plan Chief Complaint/Hosp Course 1. 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 Hypertension Resume home meds as able 3. Diabetes Continue home p.o. meds A1c at 6.2 4. Dyslipidemia Resume home statin Problems: Subjective 24 Hr Interval Summary Constitutional: no complaints Exam/Review of Systems Vital Signs Vitals Vital Signs Date Time Temp Pulse Resp B/P Pulse Ox O2 Delivery O2 Flow Rate FiO2 06/13/17 13:48 97.8 77 18 154/91 92 06/11/17 07:40 Nasal Cannula 2.0 Intake and Output 06/12/17 06/12/17 06/13/17 15:00 23:00 07:00 Intake Total 700 ml 300 ml Output Total 550 ml Balance 700 ml -250 ml Exam Constitutional: alert, oriented Respiratory: clear to auscultation Cardiovascular: regular rate and rhythm Gastrointestinal: soft, No distended Musculoskeletal: nl extremities to inspection Results Result Diagram: 06/13/17 0450 06/11/17 0816 Results 24 hrs Laboratory Tests Test 06/12/17 21:47 06/13/17 04:50 06/13/17 08:53 06/13/17 12:39 Bedside Glucose 137 145 166 White Blood Count 9.6 Red Blood Count 3.76 L Hemoglobin 11.1 L Hematocrit 34.2 L Mean Corpuscular Volume 91.0 Mean Corpuscular Hemoglobin 29.5 Mean Corpuscular Hemoglobin Concent 32.5 Red Cell Distribution Width 12.6 Platelet Count 169 Mean Platelet Volume 10.5 H Neutrophils % 70.8 Lymphocytes % 18.9 Monocytes % 8.8 Eosinophils % 1.1 Basophils % 0.1 Nucleated Red Blood Cells % 0.0 Neutrophils # 6.8 Lymphocytes # 1.8 Monocytes # 0.8 Eosinophils # 0.1 Basophils # 0.0 Nucleated Red Blood Cells # 0.0 Test 06/13/17 17:47 Bedside Glucose 151 Medications Medications Current Medications Miscellaneous Information 1 ea NOTE XX ; Start 06/10/17 at 11:00 Glucose (Glutose) 15 gm Q15M PRN PO DECREASED GLUCOSE; Start 06/10/17 at 11:00 Glucose (Glutose) 22.5 gm Q15M PRN PO DECREASED GLUCOSE; Start 06/10/17 at 11: 00 Dextrose (D50w Syringe) 25 ml Q15M PRN IV DECREASED GLUCOSE; Start 06/10/17 at 11:00 Dextrose (D50w Syringe) 50 ml Q15M PRN IV DECREASED GLUCOSE; Start 06/10/17 at 11:00 Glucagon (Glucagen) 1 mg Q15M PRN IM DECREASED GLUCOSE; Start 06/10/17 at 11:00 Glucose (Glutose) 15 gm Q15M PRN BUCCAL DECREASED GLUCOSE; Start 06/10/17 at 11 :00 Oxycodone HCl (Roxicodone) 20 mg Q3H PRN PO PAIN LEVEL 8-10; Start 06/10/17 at 16:00 Oxycodone HCl (Roxicodone) 10 mg Q3H PRN PO PAIN LEVEL 4-7 Last administered on 06/13/17 15:30; Admin Dose 10 MG; Start 06/10/17 at 16:00 Oxycodone HCl (Roxicodone) 5 mg Q3H PRN PO PAIN LEVEL 1-3; Start 06/10/17 at 16 :00 Zolpidem Tartrate (Ambien) 5 mg HS PRN PO INSOMNIA; Start 06/10/17 at 16:00 Miscellaneous Information (Note) NOTE XX ; Start 06/10/17 at 16:00 Aspirin (Ecotrin) 325 mg BID PO Last administered on 06/13/17 08:58; Admin Dose 325 MG; Start 06/11/17 at 09:00 Celecoxib (Celebrex) 200 mg BID PO Last administered on 06/13/17 08:57; Admin Dose 200 MG; Start 06/11/17 at 09:00 Dexamethasone (Decadron) 4 mg DAILY@07 IV Last administered on 06/13/17 06:03 ; Admin Dose 4 MG; Start 06/11/17 at 07:00; Stop 06/14/17 at 06:59 Pantoprazole (Protonix Tab) 40 mg DAILY@06 PO Last administered on 06/13/17 06:03; Admin Dose 40 MG; Start 06/12/17 at 06:00 Docusate Sodium/ Ferrous Fumarate (Marlo-Sequels) 1 tab BID PO Last administered on 06/13/17 08:58; Admin Dose 1 TAB; Start 06/11/17 at 09:00 Docusate Sodium (Colace) 200 mg BID PO Last administered on 06/13/17 08:57; Admin Dose 200 MG; Start 06/11/17 at 09:00; Stop 06/14/17 at 08:59 Simethicone (Mylicon) 80 mg TID PRN PO DISTENSION/GAS/BLOATING; Start 06/10/17 at 16:00 Senna/Docusate Sodium (Senokot-S) 2 tab BID PRN PO CONSTIPATION Last administered on 06/13/17 06:03; Admin Dose 2 TAB; Start 06/10/17 at 16:00 Magnesium Hydroxide (Milk Of Mag) 30 ml HS PRN PO CONSTIPATION Last administered on 06/13/17 08:57; Admin Dose 30 ML; Start 06/10/17 at 16:00 Bisacodyl (Dulcolax Supp) 10 mg DAILY PRN [place] CONSTIPATION; Start 06/10/17 at 16 :00 Sodium Biphosphate/ Sodium Phosphate (Fleet Enema) 133 ml DAILY PRN [place] CONSTIPATION; Start 06/10/17 at 16:00 Diphenhydramine HCl (Benadryl) 25 mg Q4H PRN IM ITCHING OR RASH; Start at 16:00 Ketorolac Tromethamine (Toradol) 15 mg DAILY@06 PRN IV PAIN; Start 06/11/17 at 06:00; Stop 06/15/17 at 05:59 Bupivacaine HCl/ Epinephrine Bitart (Marcaine 0.25%/ Epi (Sdv) 30 ml) 20 ml DAILY@06 PRN INJ ADMINSTER BY SURGEON ONLY; Start 06/11/17 at 06:00; Stop 07/20 at 05:59 Naloxone HCl (Narcan) 0.2 mg Q2M PRN IV DECREASED REPIRATORY RATE; Start at 16:00 Gabapentin (Neurontin) 100 mg TID PO Last administered on 06/13/17 13:09; Admin Dose 100 MG; Start 06/10/17 at 21:00 Atorvastatin Calcium (Lipitor) 10 mg DAILY@21 PO Last administered on 21:45; Admin Dose 10 MG; Start 06/10/17 at 21:00 Linagliptin (Tradjenta) 5 mg DAILY PO Last administered on 06/13/17 08:57; Admin Dose 5 MG; Start 06/11/17 at 09:00 Diagnostic Test (Pha) (Accu-Chek) 1 ea 02 XX ; Start 06/11/17 at 02:00 RACHEL DURON Jun 13, 2017 18:34
--- NOTE | 2017-06-14 07:37 | DS ---
Date/Time of Note Date/Time of Note DATE: 06/14/17 TIME: 07:35 Discharge Summary Admission/Discharge Info Admit Date/Time Jun 10, 2017 at 08:26 Discharge Date/Time Jun 13, 2017 at 18:49 Discharge Diagnosis Status post right total knee replacement and left unicondylar medial resurfacing. Patient Condition: Good Hospital Course On the day of admission, the patient underwent right total knee replacement and left unicondylar partial knee replacement to the medial compartment Intraoperative complications: None Postoperative complications: None The patient was given prophylactic antibiotics and anticoagulants. On the day of surgery and first postoperative day patient was started on gait training and was taught usual restrictions following knee replacement On postoperative day 1 dressing was clean dry and intact. No complications were observed. On the day of discharge, the wound was clean and healing well; there was no sign of infection. Wound care instructions were discussed with the patient. Discharge Temperature: 97.8 Discharge White Blood Cell Count: 9.6 Discharge Hemoglobin: 11.1 The patient was discharged [home with home health][custodial facility][ acute rehab facility]. Arrangements were made for visiting nurses and home health/physical therapy. The patient will be seen in office at scheduled postoperative evaluation date given on their preoperative exam. Should patient complain of any problems prior to scheduled postoperative evaluation date, they may call into outpatient clinic to determine if they need to be scheduled at sooner appointment to be seen immediately if needed. Discharge medications: As per medication reconciliation form Diet: Same as preadmission diet. This is Chapincito Weber PA-C dictating discharge summary for Dr. Perez. Home Meds Reported Medications Pravastatin Sodium* (Pravastatin Sodium*) 40 Mg Tablet, 40 MG PO HS, TAB 06/10/17 Benazepril-Hydrochlorothiazide (Benazepril-Hydrochlorothiazide) 10-12.5 Mg Tablet, 1 TAB PO BID, #30 TAB 06/10/17 Meloxicam* (Meloxicam*) 7.5 Mg Tablet, 7.5 MG PO BID, #30 TAB 06/10/17 Gabapentin* (Gabapentin*) 100 Mg Capsule, 100 MG PO TID, #90 CAP 06/10/17 Sitagliptin* (Januvia*) 100 Mg Tablet, 100 MG PO DAILY, #30 TAB 06/10/17 Dapagliflozin/Metformin HCl (Xigduo Xr 5 mg-1,000 mg Tablet) 1 Each Tab.bp.24h, 2 EACH PO DAILY, TAB 06/10/17 Follow-up Plan Follow-up at postoperative appointment provided to you at your preoperative examination. Primary Care Provider Care Physician No Primary Pending Labs Laboratory Tests Test 06/13/17 08:53 06/13/17 12:39 06/13/17 17:47 Bedside Glucose 145mg/dL (70-220) 166mg/dL (70-220) 151mg/dL (70-220) CHAPINCITO TUCKER PA-C Jun 14, 2017 07:37
== END 2017-06-13 18:49 | disposition home health service (06) | DRG 462 ==
LOC: REC 08:26 → MS1 17:15
PROVIDERS: ADMIT Orthopaedic Surgery; ATTEND Orthopaedic Surgery
PROC: 0SRD0L9 Replacement of Left Knee Joint with Medial Unicondylar Synthetic Substitute, Cemented, Open Approach (ICD-10-PCS; 2017-06-10)
PROC: 0SRC0J9 Replacement of Right Knee Joint with Synthetic Substitute, Cemented, Open Approach (ICD-10-PCS; principal; 2017-06-10 10:00)
DX: M17.0 Bilateral primary osteoarthritis of knee (principal); E11.69 Type 2 diabetes mellitus with other specified complication; E66.01 Morbid (severe) obesity due to excess calories; I10 Essential (primary) hypertension; Z85.46 Personal history of malignant neoplasm of prostate; E78.2 Mixed hyperlipidemia; Z68.37 Body mass index [BMI] 37.0-37.9, adult
CPT/HCPCS: 73560; 80048; 81001; 82962; 83036; 83735; 85025; 86850; 86900; 86901; 87081; 87086; 88304; 88311; 97110; 97116; 97162; 97167; C1776; J0131; J0690; J1100; J1815; J1885; J2250; J2274; J2405; J2710; J3010; J7120; J7121